=== PATIENT | female | born 1980 | race Caucasian/White ===

== ENCOUNTER 2021-05-30 14:39 | Inpatient (IN) | payer OTHER ==
[2021-05-30] MEDS ORDERED: SYNTHROID25 MCG PO (15:35)
[2021-05-30 15:44] LABS: HEMOGLOBIN 8.6 gm/dl (12.3-15.3); RED BLOOD COUNT 2.15 M/UL (4.00-5.10)
[2021-05-30 15:46] LABS: WHITE BLOOD COUNT 37.4 K/UL (4.5-11.0)
[2021-05-31 14:30] LABS: HEMOGLOBIN 9.5 gm/dl (12.3-15.3)
[2021-06-01 06:09] LABS: HIV AB/P24 AG SCREEN Non Reactive (Non Reactive)
[2021-06-01 07:11] LABS: HBSAG SCREEN Negative (Negative); HEP A AB, IGM Negative (Negative); HEP B CORE AB, IGM Negative (Negative); HEP C VIRUS AB 8.8 (0.0-0.9); RUBELLA ANTIBODIES, IGG 3.16 index (Immune >0.99)
[2021-06-01 15:13] LABS: TREPONEMA PALLIDUM ANTIBODIES Non Reactive (Non Reactive)
== END 2021-05-31 16:33 | disposition home or self-care (01) | DRG 786 ==
LOC: GENOP 14:39 → OB 15:32 → GENOP 16:21 → OB 16:23
PROVIDERS: Obstetrics & Gynecology; ADMIT Obstetrics & Gynecology
PROC: 4A1HXCZ Monitoring of Products of Conception, Cardiac Rate, External Approach (ICD-10-PCS; 2021-05-30)
PROC: 10D00Z1 Extraction of Products of Conception, Low, Open Approach (ICD-10-PCS; principal; 2021-05-30 15:54)
DX: O42.913 Preterm premature rupture of membranes, unspecified as to length of time between rupture and onset of labor, third trimester (principal); O45.93 Premature separation of placenta, unspecified, third trimester; O99.284 Endocrine, nutritional and metabolic diseases complicating childbirth; Z3A.30 30 weeks gestation of pregnancy; F17.210 Nicotine dependence, cigarettes, uncomplicated; Z20.822 Contact with and (suspected) exposure to COVID-19; O76 Abnormality in fetal heart rate and rhythm complicating labor and delivery; Z37.0 Single live birth; E03.9 Hypothyroidism, unspecified; O99.334 Smoking (tobacco) complicating childbirth; O99.02 Anemia complicating childbirth; D64.9 Anemia, unspecified
CPT/HCPCS: 36415; 80074; 80307; 81001; 82800; 85014; 85018; 85025; 85461; 86762; 86780; 86850; 86900; 86901; 87340; 87389; C9113; J0690; J1170; J2210; J2370; J2405; J2590; J2790; J7120; U0002